=== PATIENT | female | born 1985 | race Asian ===

== ENCOUNTER 2020-03-19 12:20 | Inpatient (IN) | payer OTHER ==
[~2020-03-19] VITALS: Ht 157.5 cm; Wt 63.0 kg
[2020-03-19 12:32] VITALS: Ht 157.5 cm; Wt 63.0 kg
--- NOTE | 2020-03-19 12:55 | NUR ---
PT AMBULATORY TO BED T2B AT THIS TIME.
--- NOTE | 2020-03-19 13:08 | NUR ---
REPORT GIVEN TO GEORGIANA ARMANDO RESUMING CARE OF PT AT THIS TIME
--- NOTE | 2020-03-19 13:18 | NUR ---
REPORT RECEIVED FROM KARLOS ARMANDO
--- NOTE | 2020-03-19 13:36 | NUR ---
PT IN [facility] RESTING, DENYING HAVING ANY PAIN AT THIS TIME. PT REPORTS THAT SHE STARTED EXPERIENCING RLQ ABD PAIN THIS MORNING. PT STS THAT HER HANDS BECAME SWEATY UPON THE ONSET OF RLQ ABD PAIN AND HAD TO ASK HER FRIEND TO DRIVE HER TO [facility] ED FROM THE RLQ ABD PAIN BEING UNBEARABLE. PT STS THAT SHE DOES NOT HAVE RLQ PAIN ANYMORE AFTER TAKING THE ADVIL THIS MORNING. PT STS THAT SHE WOULD LIKE TO WAIT FOR TEST RESULTS PRIOR TO IV PLACEMENT AND MEDS. MADE AWARE. VSS, AAOX4, RESP E/U, NAD NOTED. PT TAKEN CT VIA [facility]
--- NOTE | 2020-03-19 13:51 | NUR ---
PT BACK FROM CT
[2020-03-19 14:04] LABS: microscopic required? NO
[2020-03-19 14:24] LABS: UA SPECIFIC GRAVITY >=1.030 (1.005-1.035); urine erythrocyte NEGATIVE (NEGATIVE)
[2020-03-19 14:28] LABS: CALCIUM 9.1 mg/dL (8.5-10.1); CARBON DIOXIDE 25.4 mmol/L (21-32); CHLORIDE SERUM 104 mmol/L (98-107); CREATININE SERUM 0.7 mg/dL (0.6-1.0); GFR1 > 60 mL/min; GLUCOSE SERUM 97 mg/dL (74-106); POTASSIUM SERUM 4.5 mmol/L (3.5-5.1); SODIUM SERUM 138 mmol/L (136-145)
[2020-03-19 14:32] LABS: ALBUMIN 3.9 g/dL (3.4-5.0); ALKALINE PHOSPHATASE 42 U/L (46-116); ALT/SGPT 20 U/L (14-59); AST/SGOT 14 U/L (15-37); BILIRUBIN TOTAL 0.6 mg/dL (0.20-1.00); LIPASE 70 IU/L (73-393); TOTAL PROTEIN, SERUM 7.5 g/dL (6.4-8.2)
[2020-03-19 14:48] LABS: BASOPHIL % 0.3 % (0-2); PLATELET COUNT 261 x10^3mcL (130-400); RED CELL DISTRIBUTION WIDTH 14.3 % (11.5-14.5)
--- NOTE | 2020-03-19 14:50 | NUR ---
PT TAKEN TO U/S VIA WHEELCHAIR
--- NOTE | 2020-03-19 15:30 | NUR ---
PT RETURNED FROM ULTRSOUND GUARDING AND REQUESTING PAIN MEDICATION AT THIS TIME. INFORMED PT THAT WE WILL GET HER MEDS SOON POSSIBLE. PT GAVE UNDERSTANDING AND RETURNED TO [facility]. THEN PT AMBULATED OUT OF ROOM TO NURSES STATION REQUESTING MEDICATION AGAIN. SPOKE WITH PT REGARDING MEDICATION ADMIN. INFORMED BY TO MEDICATE PT WITH IM FENTANYL.
--- NOTE | 2020-03-19 16:07 | NUR ---
PT SPEAKING WITH FRIEND ON PHONE. PT STATES PAIN IS MUCH BETTER AND TOLERABLE AT THIS TME. SOUND PERSON RETURNED TO REASSESS PT AND WILL DO ULTRASOUND AT BEDSIDE AT THIS TIME.
--- NOTE | 2020-03-19 16:56 | NUR ---
PT LAYING IN POSITION OF COMFORT, NO ACUTE DSITRESS NOTED, RATES PAIN 4-5/10 AT THIS TIME. PT REMAINS A&OX4,NO ACUTE DISTRESS NOTED, RESP EVEN AND UNLABORED, REMAINS ON REGULATED PROGRAM MANAGER.
--- NOTE | 2020-03-19 17:35 | NUR ---
PT MEDICATED WITH 50MCG FENTANYL PER MD ORDER. PT STS HER PAIN IS RELIEVED AT 5/10 S/P FENTANYL ADMINITRATION
--- NOTE | 2020-03-19 19:49 | NUR ---
PT INFORMED OF HER ADMISSION STATUS AND ANSWERED QUESTIONS REGARDING HER ADMISSION DIAGNOSIS. PT MEDICATED WITH MORPHINE FOR 10/10 PAIN PER MD ORDER. PT STS THAT THE PAIN MEDICATION WORKED "WAY FASTER AND BETTER THAN THE OTHER PAINKILLER". PT RATES PAIN 1/10 S/P MORPHINE ADMIN. NAD NOTED, RESP E/U, CALL LIGHT IN REACH, AAOX4, REMAINS OF FULL MONITORS.
--- NOTE | 2020-03-19 21:22 | NUR ---
SPOKE WITH DR. BOLTON REQUESTING PAIN MEDICATION FOR PT PER PT RATING PAIN /
--- NOTE | 2020-03-19 22:42 | NUR ---
SPOKE WITH TO REQUEST MORE PAIN MEDICATION FOR THIS PT. PT RATES PAIN 7/10 AT THIS TIME.
--- NOTE | 2020-03-19 23:39 | NUR ---
PT IN BED RESTING, EASY TO AROUSE. PT WILL BE TRANSFERRED UP TO TELE WITH NURSE AND ERT.
--- NOTE | 2020-03-19 23:45 | NUR ---
PT TRANSFERRED TO TELE BED 236B VIA [facility] ON CARIAC MONITOR WITH RN ROBY AND EMT EILEEN. PT A&OX4,NO ACTUE DISTRESS NOTED, RESP EVEN AND UNLABORED.
[2020-03-19 23:55] LABS: CHOLESTEROL/HDL RATIO 2.6
--- NOTE | 2020-03-20 00:39 | NUR ---
REC'D PT FROM ED VIA [facility] ACCOMPANIED BY RN. PT ADM WITH CC OF ABD PAIN SINCE 11 AM YESTERDAY. CURRENTLY C/O 5/10 SHARP RLQ PAIN. AAOX4, SPEECH CLEAR, FOLLOWS COMMANDS. TELE 9. DENIES CP, DIZZINESS, OR PALPIATIONS. DENIES RESP DISTRESS OR SOB. BREATHING EVEN/UNLABORED ON RA. ABD SOFT/ROUND. C/O TENDERNESS TO RLQ UPON PALPATION. VOIDING FREELY. NO VAGINAL BLEEDING. AMBULATORY. SKIN INTACT. IV TO RAC, DRY BLOOD TO SITE. ORIENTED TO DEVICES AND SURROUNDINGS. CALL LIGHT WITHIN REACH, BED AT LOWEST POSITION. REPORT GIVEN TO CHAD ARMANDO.
[2020-03-20 00:44] VITALS: BP 114/68
--- NOTE | 2020-03-20 00:45 | NUR ---
PT RECIEVED FROM FELICITY ARMANDO. PT RESTING IN BED AT THIS TIME. STATES PAIN TO RLQ. AWAITING ORDERS PER MD. NO S/S OF ACUTE DISTRESS NOTED AT THIS TIME. WILL CONTINUE TO MONITOR.
--- NOTE | 2020-03-20 02:00 | NUR ---
PT STATING 8/10 PAIN TO LL ABD. MEDICATED PT WITH PRN MORPHINE. WILL CONTINUE TO MONITOR,
--- NOTE | 2020-03-20 05:02 | NUR ---
PT COMPLAINING OF PAIN TO THE RLQ. MEDICATED WITH PRN NORCO. WILL CONTINUE TO MONITOR.
[2020-03-20 05:50] VITALS: BP 122/69
--- NOTE | 2020-03-20 06:42 | NUR ---
PT RESTING IN BED AT THIS TIME. DENIES PAIN OR DISCOMFORT. PT BREATHING E/U ON RA. NO S/S OF ACUTE DISTRESS AT THIS TIME. ALL NEEDS AND CONCERNS ADDRESSED THIS SHIFT. WILL ENDORSE TO DAY NURSE.
--- NOTE | 2020-03-20 07:00 | NUR ---
REC'VD PT FROM NIGHT RN. PT RESTING IN BED USING CELLPHONE, AAOX4. RES E/U, DENIES SOB ON RA. TELE MONITOR 9 SHOWING SR, DENIES CP/PRESSURE. IV TO RAC INFUSING WELL. NO ACUTE DISTRESS NOTED. DENIES PAIN/DISCOMFORT AT THIS TIME
[2020-03-20 07:41] LABS: BASOPHIL % 0.3 % (0-2); PLATELET COUNT 247 x10^3mcL (130-400); RED CELL DISTRIBUTION WIDTH 13.9 % (11.5-14.5)
[2020-03-20 08:00] LABS: CALCIUM 8.2 mg/dL (8.5-10.1); CARBON DIOXIDE 22.8 mmol/L (21-32); CHLORIDE SERUM 105 mmol/L (98-107); CREATININE SERUM 0.6 mg/dL (0.6-1.0); GFR1 > 60 mL/min; GLUCOSE SERUM 74 mg/dL (74-106); MAGNESIUM 2.3 mg/dL (1.8-2.4); PHOSPHOROUS 2.9 mg/dL (2.5-4.9); POTASSIUM SERUM 4.3 mmol/L (3.5-5.1); SODIUM SERUM 137 mmol/L (136-145)
[2020-03-20 08:05] VITALS: BP 111/71
--- NOTE | 2020-03-20 08:37 | NUR ---
PT C/O 11/22 PAIN, GIVEN MORPHINE PER EMAR
--- NOTE | 2020-03-20 09:33 | NUR ---
PT C/O 09/22 PAIN, GIVEN NORCO PER EMAR. PT STATES "NORCO HELPS WITH MY PAIN MORE THAN THE MORPHINE. THE MORPHINE JUST PUTS ME TO SLEEP."
--- NOTE | 2020-03-20 12:06 | NUR ---
PT C/O SEVERE ABD PAIN, GIVEN MORPHINE PER EMAR
[2020-03-20 12:57] VITALS: BP 118/69
--- NOTE | 2020-03-20 13:01 | NUR ---
MD AWARE THAT PT'S PAIN IS UNCONTROLLED WITH MORPHINE AND NORCO. MD WILL PLACE ORDERS
--- NOTE | 2020-03-20 13:29 | NUR ---
PT C/O 5/10 ABDOMINAL PAIN, GIVEN PERCOCET PER EMAR. ALSO, PLACED A HEATING PAD FOR COMFOR
[2020-03-20 17:00] VITALS: BP 110/65
--- NOTE | 2020-03-20 19:00 | NUR ---
PT C/O SEVERE PAIN, GIVEN PERCOCET PER EMAR. ALSO, C/O NAUSEA GIVEN ZOFRAN PER EMAR AND GAVE CRACKERS
--- NOTE | 2020-03-20 20:29 | NUR ---
PT MEET AT THE BEGINNGING OF SHIFT, PT WAS OBSERVED IN BED WITH EYES OPEN, A/A/O X4. PT HAS STRONG PULSES IN ALL EXTREMITIES, NO PRESENCE OF EDEMA. PT HAS CLEAR BREATH SOUNDS, O2 SATURATION 97% ON ROOM AIR. BOWEL SOUNDS HEARD IN ALL FOUR QUADRANTS, PT DENIES N/V UNLESS SHE IS MOVING AROUND. PT IS ABLE TO AMBULATE AND VOID. NO WEAKNESS NOTED. SKIN IS INTACT WITH BRISK CAP REFILL. PT STATED THAT HER PAIN LEVEL WAS A 4 ON A 0-10 SCALE, PT HAS PAIN IN THE RLQ THAT IS MANAGEABLE WITH PAIN MEDICATIONS. PT HAS A PATENT RAC IV SITE WITH IV SODIUM CHLORIDE 0.9% AT 1,000 MLS/100 MLS/HR ORDERED. BED IS ON THE LOWEST LEVEL, CALL LIGHT WITHIN REACH, BED RAILS UP X2. PT WAS ENCOUARGED TO CALL FOR HELP WITH THE CALL LIGHT. NO PAIN, DISTRESS OR DISCOMFORT NOTED AT THIS TIME. WILL CONTINUE TO MONITOR.
[2020-03-20 21:21] VITALS: BP 110/65
--- NOTE | 2020-03-20 21:21 | NUR ---
PT C/O OF ABD PAIN. PT GIVEN NORCO PO PAIN MEDICATION, PT TOLERATED IT WELL. NO SIDE EFFECTS NOTED AND WAS EFFECTIVE. WILL CONTINUE TO MONITOR.
--- NOTE | 2020-03-20 23:51 | NUR ---
DR. CUNNINGHAM RECOMMENDATION IS TO ORDER TUMOR MARKERS: INHIBIN A/B, ESTRADIOL, TESTOSTERONE, CA-125. DR. VILA NOTIFIED IN PERSON. WILL CONTINUE TO MONITOR.
--- NOTE | 2020-03-21 00:07 | NUR ---
PT C/O PAIN IN RLQ AND NAUSEA. PT GIVEN MORPHIN AND ZOFRAN IVP. PT TOLERATED MEDICATION WELL. BED ON THE LOWEST LEVEL, BED RAILS UP X2, NONE SKID SOCKS ON, CALL LIGHT WITHIN REACH. WILL CONTINUE TO MONITOR.
--- NOTE | 2020-03-21 03:00 | NUR ---
PT IN BED RESTING. NO C/O OR SIGNS OF PAIN, DISTRESS, DISCOMFORT. BED ON THE LOWEST LEVEL, CALL LIGHT WITHIN REACH, BED RAILS UP X2. WILL CONTINUE TO MONITOR.
--- NOTE | 2020-03-21 03:23 | NUR ---
PT C/O OF PAIN, PT GIVEN PERCOCET PO PER ORDER. PT TOLERATED MEDICATION WELL, NO C/O OR SIGNS OF SIDE EFFECTS. WILL CONTINUE TO MONITOR.
[2020-03-21 05:08] VITALS: BP 112/62
--- NOTE | 2020-03-21 06:19 | NUR ---
PT RESTING IN BED, NO C/O OR SIGN OF PAIN, DISTRESS, OR DISCOMFORT. BED WAS ON LOWEST LEVEL, CALL LIGHT WITHIN REACH, BED RAILS UP X2. WILL ENDORSE TO NEXT SHIFT.
[2020-03-21 08:33] VITALS: BP 107/67
[2020-03-21] MEDS ORDERED: APAP/OXYCODONE1 TA4 PO (09:03)
[2020-03-21 10:54] VITALS: BP 107/67
--- NOTE | 2020-03-21 11:00 | NUR ---
PATIENT IS A 34 YEAR OLD FEMALE THAT WAS ADMITTED TO [place] [facility] FOR ABDOMINAL PAIN THAT PROMPTED A OBGYN CONSULT. CT ABDOMEN AND PELVIS REVEALED A OVARIAN MASS. PER NOC SHIFT PATIENT COMPLAINS OF PAIN VERY OFTEN MEDICATED WITH NORCO/MORPHINE/PERCOCET. MORPHINE DC THIS AM, NORCO GIVEN FOR PAIN 01/22. PATIENT ALERT AND ORIENTED ABLE TO VERBALIZE NEEDS, DC ORDER PLACED FROM DR REARDON- PENDING DC SUMMARY AND INSTRUCTIONS PATIENT WILL LEAVE. I WILL EDUCATE ON PLAN OF CARE.
--- NOTE | 2020-03-21 12:58 | NUR ---
DC ORDER PLACED. PENDING LABS AT THIS TIME-WAITING FOR THEM AND THEN PATIENT WILL LEAVE.
[2020-03-21] MEDS ORDERED: IBU800 M2 PO (13:11)
[2020-03-21 13:41] VITALS: BP 108/61
--- NOTE | 2020-03-21 14:18 | NUR ---
CALLED LAB PATIENT PENDING DC DUE TO LAB DRAW. THEY WERE DELAYED AND UNAWARE. THEY ARE ON THERE WAY NOW, THEN PATIENT WILL DISCHARGE. INSTRUCTIONS WILL BE GIVEN. IV WILL BE REMOVED.
--- NOTE | 2020-03-21 15:11 | NUR ---
DR ROSAS, SAID THAT BEFORE DC PATIENT CAN TAKE ACETAMENOPHIN FOR PAIN. PATIENT REQUESTING PAIN MEDICATIONS AT THIS TIME. OFFERED AND SHE SAID SHE WANTS IT. GIVING IT TO HER NOW, IV IS REMOVED. DC INSTRUCTIONS SIGNED. PATIENT GETTING DRESSED AND ARRANGING TRANSPORTATION WITH FAMILY NOW.
== END 2020-03-21 15:43 | disposition home or self-care (01) | DRG 761 ==
LOC: ED 12:20 → MU 18:44 → DU 18:44 → MU 03-21 10:22
PROVIDERS: Emergency Medicine; ADMIT Internal Medicine; ATTEND Internal Medicine
DX: N83.202 Unspecified ovarian cyst, left side (principal); Z20.828 Contact with and (suspected) exposure to other viral communicable diseases; F17.210 Nicotine dependence, cigarettes, uncomplicated; Z83.3 Family history of diabetes mellitus; Z82.49 Family history of ischemic heart disease and other diseases of the circulatory system
CPT/HCPCS: 82670; 84403; 99406; G0378; J2270; J2405; J3010; J7030